=== PATIENT | male | born 1980 | race Caucasian/White ===

== ENCOUNTER 2019-12-29 08:21 | Outpatient (CLI) | payer OTHER, SELFPAY ==
--- NOTE | 2019-12-29 | ECHO_ITS ---
Patient Info Name: Jose Cerna Age: 39 years : 1980 Gender: Male Ht: 74 in Wt: 282 lbs BSA: 2.63 m2 HR: 70 bpm BP: 157 / 94 mmHg Heart Rhythm: Sinus Rhythm Technical Quality: Good Exam Date: 12/29/2019 8:52 AM Exam Location: [facility] Patient Status: Outpatient Admit Date: 12/29/2019 Staff Ordering Physician: Alfa Pang MD Division Director: Gilmer Vogt RDCS Attending Provider: Alfa Pang MD Referring Physician: Poly WALDEN; Exam Type: CA echo doppler color flow Study Info Indications I10 - Essential (primary) hypertension Complete two-dimensional, color flow and Doppler transthoracic echocardiogram is performed. Strain analysis performed. History/Risk Factors HTN and palpitations. Summary 1. Left ventricular chamber dimension is normal. 2. Left ventricular systolic function is normal, estimated at 55-60%. 3. There is mildly increased left ventricular wall thickness. 4. The left ventricular diastolic function is normal. 5. E/e' 6 is not elevated. 6. Global longitudinal strain is abnormal at -15.3%. 7. Left atrial chamber dimension is mildly enlarged. 8. There is mild tricuspid valve regurgitation. 9. No pulmonary hypertension, estimated pulmonary arterial systolic pressure is 32 mmHg. Left Ventricle E/e' 6 is not elevated. Global longitudinal strain is abnormal at -15.3%. Left ventricular chamber dimension is normal. Left ventricular systolic function is normal, estimated at 55-60%. There is mildly increased left ventricular wall thickness. The left ventricular diastolic function is normal. Right Ventricle Right ventricular chamber dimension is normal. Right ventricular systolic function is normal. Left Atria Left atrial chamber dimension is mildly enlarged. Right Atria Right atrial chamber dimension is normal. Aortic Valve The aortic valve is trileaflet. There is no aortic valve stenosis. There is no aortic valve regurgitation. Pulmonic Valve There is no pulmonic regurgitation. Mitral Valve There is no mitral valve stenosis. There is no mitral valve regurgitation. Tricuspid Valve There is mild tricuspid valve regurgitation. No pulmonary hypertension, estimated pulmonary arterial systolic pressure is 32 mmHg. Pericardium/Pleural There is no pericardial effusion. Inferior Vena Cava Normal inferior vena cava with >50% collapse upon inspiration consistent with normal right atrial pressure, 5 mmHg. Aorta The aortic root size at the sinus of Valsalva is normal. Left Ventricular Outflow Tract Name Value Normal LVOT 2D LVOT Diameter 2.1 cm LVOT Doppler LVOT Peak Gradient 4 mmHg LVOT Mean Gradient 2 mmHg LVOT VTI 21 cm LVOT VTI/AV VTI Ratio 0.8 LVOT Stroke Volume 77 ml LVOT CO 5.2 l/min LVOT CI 2.0 l/min/m2 Mitral Valve
--- NOTE | 2020-01-04 11:17 | WPDHOLTEREM ---
Holter/Event Monitor Holter/Event Monitor Date of procedure: 12/29/19 Procedure Type: 48 hour holter monitor Indications: Hypertension Conclusion: 1. 48 hour holter monitor on 12/29/19. 2. Underlying rhythm is sinus rhythm. HR range 46-132 bpm; average HR 81 bpm. 3. There are 34 premature supraventricular complexes, 2 supraventricular couplets and 1 atrial triplet. No supraventricular tachycardia. 4. No premature ventricular complexes. No ventricular tachycardia. 5. No sinoatrial or atrioventricular blocks. No significant pauses greater than seconds. 6. Patient reports symptoms of palpitations and hard beats which demonstrate sinus rhythm, HR range 69-87 bpm.
== END 2019-12-29 08:22 | disposition home or self-care (01) ==
PROVIDERS: PCP Internal Medicine; Visit Provider Internal Medicine
DX: I10 Essential (primary) hypertension (principal)
CPT/HCPCS: 93225; 93226; 93306

== ENCOUNTER 2019-12-30 07:53 | Outpatient (CLI) | payer OTHER, SELFPAY ==
--- NOTE | ~2019-12-30 | XR_ITS ---
XR UGIAC w barium swallow DATE: 12/30/2019 09:23 INDICATION: Dysphagia. Sticking of food sometimes water in chest. TECHNIQUE: Fluoroscopy, spot and overhead images during and after oral ingestion of barium. 1.6 minutes fluoroscopy time DAP: 138 158 images COMPARISON: None FINDINGS: There is a very small sliding hiatal hernia with Schatzki's ring. There is irregularity of the mucosa at the distal esophagus suggesting esophagitis and possible erosions. Endoscopic correlati on and biopsy if necessary should be considered. Otherwise no stricture, mucosal fold thickening, erosion, ulceration or intraluminal mass lesion of t he upper gastrointestinal tract is noted. IMPRESSION: Small sliding hiatal hernia with Schatzki's ring Irregular distal esophageal mucosa suggesting erosions/esophagitis; consider endoscopic visualization and biopsy as clinically appropriate Reviewed, dictated and finalized at [facility]. Reviewed, dictated and finalized at location [facility]. IMPRESSION: Small sliding hiatal hernia with Schatzki's ring Irregular distal esophageal mucosa suggesting erosions/esophagitis; consider en doscopic visualization and biopsy as clinically appropriate
== END 2019-12-30 07:54 | disposition home or self-care (01) ==
PROVIDERS: PCP Internal Medicine; Visit Provider Internal Medicine
DX: K44.9 Diaphragmatic hernia without obstruction or gangrene (principal); K22.2 Esophageal obstruction
CPT/HCPCS: 74246

== ENCOUNTER 2021-12-28 12:51 | Outpatient (CLI) | payer OTHER, SELFPAY ==
--- NOTE | ~2021-12-28 | XR_ITS ---
EXAMINATION: XR abdomen obstructive series DATE: 12/28/2021 13:49 INDICATION: Abdominal distention TECHNIQUE: Upright and supine views of the abdomen were obtained. COMPARISON: None. FINDINGS: There is no free intraperitoneal gas. There are mildly dilated small bowel with air-fluid l evels. Gas and stool are seen in the distal colon. There are phleboliths of the pelvis there is minim al airspace opacity of the left lung base. IMPRESSION: 1. Mildly dilated small bowel with air-fluid levels, consistent with ileus versus partial obstruction . 2. Left basilar airspace opacity, consistent with atelectasis versus pneumonia. Reviewed, dictated and finalized at location B. ND COOK AND BAKER IMPRESSION: 1. Mildly dilated small bowel with air-fluid levels, consistent with ileus vers us partial obstruction. 2. Left basilar airspace opacity, consistent with atelectasis versus pneumonia.
--- NOTE | ~2021-12-28 | US_ITS ---
EXAMINATION: US abdomen limited DATE: 12/28/2021 13:44 INDICATION: Abdominal pain. Abdominal distention. TECHNIQUE: Multiple grayscale and Doppler ultrasound images of the abdomen were obtained. COMPARISON: None FINDINGS: The pancreas is not well visualized. There is diffuse hepatic steatosis. No liver surface n odularity. The gallbladder is normal in size. No gallstones or gallbladder wall thickening. There was no sonographic Blackburn sign. The common duct is normal and measures 4 mm. IMPRESSION: 1. Diffuse hepatic steatosis. Reviewed, dictated and finalized at location A. ENT PRESSER
[2021-12-28 13:13] LABS: Basophils Percent Auto 0.2 % (0.2-1.2); Eosinophils Absolute Auto 0.1 K/mm3 (0-0.3); Eosinophils Percent Auto 0.6 % (0-4.4); Hematocrit 44.4 % (42.0-52.0); Hemoglobin 15.3 g/dL (14.0-18.0); Immature Granulocyte Absolute 0.02 K/mm3 (0.00-0.031); Immature Granulocyte Percent A 0.2 % (0-0.5); Lymphocytes Absolute Auto 1.52 K/mm3 (0.9-3.2); Lymphocytes Percent Auto 18.7 % (18.3-44.2); Mean Corpuscular HGB Conc 34.5 g/dl (32-36); Mean Corpuscular Hemoglobin 30.9 pg (26-34); Mean Corpuscular Volume 89.7 fl (80-100); Mean Platelet Volume 9.2 fl (7.4-10.4); Monocytes Absolute Auto 1.2 K/mm3 (0.1-0.6); Monocytes Percent Auto 14.9 % (2.6-8.5); Neutrophils Absolute Auto 5.3 K/mm3 (1.3-6.7); Neutrophils Percent Auto 65.4 % (45.5-73.1); Platelet Count Result 243 k/mm3 (150-375); Red Blood Count 4.95 M/mm3 (4.6-6.20); Red Cell Distribution Width 12.6 % (11.5-14.5); White Blood Count 8.1 K/mm3 (4.5-10.0)
[2021-12-28 13:21] LABS: Amylase 60 U/L (30-110); Lipase 75 U/L (23-300)
[2021-12-28 13:25] LABS: Alanine Aminotransferase 37 U/L (4-50); Albumin Level 4.4 g/dL (3.5-5.1); Alkaline Phosphatase 107 U/L (38-126); Anion Gap 7 mmol/L (8-16); Aspartate Amino Transferase 31 U/L (17-59); Bilirubin,Total 0.7 mg/dL (0.2-1.3); Blood Urea Nitrogen 18 mg/dL (9-20); Calcium 8.8 mg/dL (8.4-10.2); Carbon Dioxide 27 mmol/L (22-30); Chloride 103 mmol/L (98-107); Estimated Glomerular Filt Rate > 60; Glucose 109 mg/dL (65-110); Potassium 4.3 mmol/L (3.4-5.0); Sodium 137 mmol/L (137-145)
== END 2021-12-28 12:52 | disposition home or self-care (01) ==
PROVIDERS: PCP Internal Medicine; Visit Provider Internal Medicine
DX: R14.0 Abdominal distension (gaseous) (principal); R10.9 Unspecified abdominal pain; K76.0 Fatty (change of) liver, not elsewhere classified
CPT/HCPCS: 36415; 74019; 76705; 80053; 82150; 83690; 85025

== ENCOUNTER 2021-12-28 14:11 | Inpatient (IN) | payer OTHER, SELFPAY ==
--- NOTE | ~2021-12-28 | XR_ITS ---
EXAMINATION: XR abdomen NG/feed tube insert DATE: 12/28/2021 18:18 INDICATION: Nasogastric tube placement with 2 days of abdominal plain TECHNIQUE: A supine view of the abdomen and lower chest was obtained for evaluation of feeding tube placement. COMPARISON: CT abdomen and pelvis dated 12/28/2021 FINDINGS: Is a gastric tube tip in proximal side port in the body of the stomach. There are few gas-filled but not frankly dilated loops of small bowel in the upper abdomen. There is also small amount of gas scat tered throughout the normal caliber transverse colon. Lung bases are clear. Heart size is normal. IMPRESSION: 1. Nasogastric tube in stomach. Reviewed, dictated and finalized at location A. ECTIONAL TREATMENT SPECIALIST
--- NOTE | ~2021-12-28 | CT_ITS ---
EXAMINATION: CT abdomen pelvis w con INDICATION: Epigastric pain TECHNIQUE: Computed tomographic images of the abdomen and pelvis were obtained after the administrati on of 100 cc of Omnipaque 350 intravenous contrast. The dose-length product (DLP) was 1535.30 mGy-cm. Automated exposure control and iterative reconstruction technique were employed. COMPARISON: None available FINDINGS: Minimal dependent atelectasis is present in the lung bases. The heart size is normal. The l iver, spleen, pancreas, gallbladder, and adrenal glands are normal. The kidneys are unremarkable. No pathologically enlarged abdominal or pelvic lymph nodes are identified. There are multiple dilated lo ops of small bowel in the midabdomen. Many of the affected small bowel loops demonstrate wall thicken ing. Some of the more distal loops are not distended but demonstrate wall thickening as well. Althoug h no focal transition point is identified, many of the loops of bowel appear to converge on a port in the midabdomen. The distalmost small bowel is decompressed. There is no free intraperitoneal gas. A trace volume of ascites is present. The appendix is normal. IMPRESSION: 1. Small bowel obstruction. Reviewed, dictated and finalized at location B. GENCY PLANNING AND RESPONSE MANAGER IMPRESSION: 1. Small bowel obstruction.
--- NOTE | ~2021-12-28 | XR_ITS ---
EXAMINATION: XR UGI water soluble w sbs DATE: 12/29/2021 11:24 INDICATION: Small bowel obstruction. TECHNIQUE: Water-soluble contrast was injected into the nasogastric tube. Fluoroscopy of the stomach and small bowel was performed. Fluoroscopy exposure time was 0.0 minutes. Radiographs of the abdomen were obtained. The total number of images was 11. COMPARISON: CT abdomen and pelvis 12/28/2021 FINDINGS: UPPER GASTROINTESTINAL SERIES: The stomach and duodenum show a normal folding pattern. SMALL BOWEL SERIES: There are dilated loops of jejunum. No transition point is identified. The terminal ileum is normal. Transit time to the colon was 45 minutes. IMPRESSION: 1. Dilated loops of jejunum with normal transit time of contrast to the colon, consistent with adynam ic ileus. Reviewed, dictated and finalized at location A. EAD OPERATOR IMPRESSION: 1. Dilated loops of jejunum with normal transit time of contrast to the colon, consistent with adynamic ileus.
[2021-12-28 14:23] VITALS: BP 167/106; PULSE 90; RESP 18; TEMP 36.8; O2SAT 99
[2021-12-28 14:44] LABS: Basophils Percent Auto 0.3 % (0.2-1.2); Eosinophils Percent Auto 0.4 % (0-4.4); Hematocrit 46.5 % (42.0-52.0); Immature Granulocyte Absolute 0.01 K/mm3 (0.00-0.031); Immature Granulocyte Percent A 0.1 % (0-0.5); Lymphocytes Absolute Auto 1.14 K/mm3 (0.9-3.2); Lymphocytes Percent Auto 15.4 % (18.3-44.2); Mean Corpuscular HGB Conc 34.4 g/dl (32-36); Mean Corpuscular Hemoglobin 30.9 pg (26-34); Mean Corpuscular Volume 89.9 fl (80-100); Mean Platelet Volume 9.4 fl (7.4-10.4); Monocytes Percent Auto 13.4 % (2.6-8.5); Neutrophils Absolute Auto 5.2 K/mm3 (1.3-6.7); Neutrophils Percent Auto 70.4 % (45.5-73.1); Platelet Count Result 260 k/mm3 (150-375); Red Blood Count 5.17 M/mm3 (4.6-6.20); Red Cell Distribution Width 12.7 % (11.5-14.5); White Blood Count 7.4 K/mm3 (4.5-10.0)
[2021-12-28 15:02] LABS: Alanine Aminotransferase 39 U/L (4-50); Albumin Level 4.7 g/dL (3.5-5.1); Alkaline Phosphatase 118 U/L (38-126); Anion Gap 10 mmol/L (8-16); Aspartate Amino Transferase 27 U/L (17-59); Bilirubin,Total 0.8 mg/dL (0.2-1.3); Blood Urea Nitrogen 19 mg/dL (9-20); Calcium 8.8 mg/dL (8.4-10.2); Carbon Dioxide 27 mmol/L (22-30); Chloride 101 mmol/L (98-107); Estimated CRCL calculation 112 ml/min; Estimated Glomerular Filt Rate > 60; Glucose 110 mg/dL (65-110); Lipase 79 U/L (23-300); Sodium 138 mmol/L (137-145)
[2021-12-28 15:20] LABS: Add Urine Microscopic? YES; Appearance Urine Clear (Clear); Bilirubin Urine Negative (Negative); Blood Urine Negative (Negative); Color Urine Amber (Yellow); Glucose Urine UA Negative (Negative); Ketones Urine Negative (Negative); Leukocyte Esterase Ur Negative LEU/UL (Negative); Mucus Urine Few /lpf; Nitrate Urine Negative (Negative); Protein Urine Negative (Negative); RBC Urine 0-2 /hpf (0-2); Specific Grav Ur 1.028 (1.001-1.035); WBC Urine 0-3 /hpf
[2021-12-28 15:46] VITALS: BP 148/104
--- NOTE | 2021-12-28 16:21 | ED.ABDPAIN ---
HPI - Abdominal Pain General Chief Complaint: Abdominal Pain Stated Complaint: abdominal pain Time Seen by Provider: 12/28/21 16:06 Source: patient History of Present Illness HPI narrative: Patient presents with abdominal pain. Reports that abdominal pain since Friday noted after having some lunch when he ate a salad and started to feel nauseous. Endocell throw up if not noting change in symptoms abdominal pain got progressively worse he saw his primary care doctor who ordered right ultrasound and obstruction series. The obstruction series was concerning for partial obstruction was referred to the ER for evaluation. Patient reports his pain is epigastric area constant achy, no clear aggravating or alleviating factors, no radiation. It is associated with nausea he also reports some soft stools denies any urinary symptoms Related Data Home Medications Medication Instructions Recorded Confirmed cyanocobalamin (vitamin B-12) 1,000 mcg PO DAILY 12/03/19 12/28/21 1,000 mcg tablet omega-3 fatty acids 1,000 mg 2,000 mg PO BID cap 12/03/19 12/28/21 capsule Allergies Allergy/AdvReac Type Severity Reaction Status Date / Time No Known Allergies Allergy Verified 12/28/21 12:20 Review of Systems Review of Systems: CONSTITUTIONAL: Denies fever, chills, or sweats. EYES: Denies visual changes, redness, or discharge. ENT: Denies rhinorrhea, congestion, sore throat, or otalgia. CARDIOVASCULAR: Denies chest pain, palpitations, or edema. RESPIRATORY: Denies cough or dyspnea. GASTROINTESTINAL: Abdominal pain with nausea GENITOURINARY: Denies dysuria or hematuria. SKIN: Denies rash or itching. MUSCULOSKELETAL: Denies back pain, joint pain, or myalgia. NEUROLOGIC: Denies headache, numbness, dizziness, or weakness. PSYCHIATRIC: Denies anxiety or depression. All systems reviewed & are unremarkable except as noted in HPI and below PMFSH Past Medical History Medical History Abdominal bloating Benign essential hypertension BMI 38.0-38.9,adult BMI 39.0-39.9,adult Elevated homocysteine Encounter for preventive health examination Encounter for routine adult health examination without abnormal findings GERD (gastroesophageal reflux disease) Heart palpitations Hiatal hernia Hyperlipidemia On senior care drug therapy Onychomycosis Schatzki's ring Family History Family History Father Hypertension Social History Social History Smoking status: Never smoker Alcohol intake: current Exam Narrative: GENERAL: Well-appearing, well-nourished, and in no acute distress. HEAD: Normocephalic, atraumatic. EYES: PERRLA and EOMI. ENT: Nares clear, no rhinorrhea or epistaxis. Mucous membranes moist. NECK: Supple. No masses. No JVD CHEST: Clear to auscultation. No respiratory distress. No wheezes rales or rhonchi HEART: Regular rate and rhythm. No murmur heard. Normal peripheral pulses. ABDOMEN: Tenderness palpation in the epigastric area no rebound or guarding soft, nondistended EXTREMITIES: Normal range of motion. No edema. SKIN: Warm, dry, no rash. NEURO: No focal deficits. Alert and oriented x3. PSYCH: Normal mood and affect. Course Reevaluation(s) Reevaluation #1: Patient resting comfortably no skin changes in symptoms results thus far reviewed with patient. Consult placed to Dr. Gaspar Date: 12/28/21 Time: 17:28 Consultations Consultation #1: Case discussed with Dr. Gaspar who will admit for further management. Patient is comfortable inpatient plan. Date: 12/28/21 Time: 17:38 Vital Signs Vital signs: Vital Signs Temperature 36.8 C 12/28/21 14:23 Pulse Rate 90 12/28/21 14:23 Respiratory Rate 18 12/28/21 14:23 Blood Pressure 167/106 H 12/28/21 14:23 Pulse Oximetry 99 12/28/21 14:23 Temperature 36.8 C 12/28/21 14:23 Pulse Rate 91
[2021-12-28] MEDS: MAG HYDROX/AL HYDROX/SIMETH 30 ML UDC PO (16:46)
[2021-12-28] MEDS: LIDOCAINE HCL 2% VISC SOLN 15 ML UDC 20 ML PO (16:46)
[2021-12-28] MEDS: SODIUM CHLORIDE 0.9% IV 1,000 ML 999 ML IV CONT (16:47)
[2021-12-28] MEDS: LORazepam INJ (*CRX) 2 MG/ML VIAL 0.5 MG IV PUSH (18:18)
[2021-12-28 18:28] VITALS: BP 144/101; PULSE 93; RESP 18; O2SAT 97
[2021-12-28 19:32] VITALS: BP 131/93; PULSE 91; RESP 20; O2SAT 97
--- NOTE | 2021-12-28 20:06 | ADMGEN ---
This patient, Jose Cerna, was admitted to Medical Room 346-01. Patient/family oriented to hospital policies and general routines including ID bracelet, bed and alarms, visiting hours, pain management, procedures, bathroom and other care routines, personal items, smoking policy, room service/diet, and visiting hours. Information on how to activate the Rapid Response Team has been discussed. Patient/Family are encouraged to report perceived risks to care and to ask questions if they do not understand what they are told or what they should do.
[2021-12-28 20:07] VITALS: BMI 37.3
[2021-12-28] MEDS: SODIUM CHLORIDE 0.9% IV 1,000 ML 125 ML IV CONT (21:16)
[2021-12-28 22:25] VITALS: BP 169/93; PULSE 80; RESP 18; TEMP 36.5; O2SAT 98
--- NOTE | 2021-12-29 01:47 | PC.NURSE ---
When this RN went to do rounds at 0100, this RN noticed that pt's NG canister contained blood tinged output. Physician is informed of finding and states that it will be dealt with in the morning.
[2021-12-29] MEDS: SODIUM CHLORIDE 0.9% IV 1,000 ML 125 ML IV CONT (04:45)
[2021-12-29 06:36] VITALS: BP 149/90; PULSE 62; RESP 18; TEMP 36.7; O2SAT 96
[2021-12-29 07:54] VITALS: O2SAT 93
[2021-12-29] MEDS: PANTOPRAZOLE SODIUM IV 40 MG VIAL IV PUSH (09:16)
--- NOTE | 2021-12-29 09:55 | PM.IMHP ---
H&P: HPI History of Present Illness Date/Time: 12/29/21 09:55 Chief Complaint: abdominal pain, nausea Narrative: patient is a 41-year-old man who works evenings. He was at work about 5:00 p.m. 3 days ago and was having salad for supper. He had about 4 bites and started noticing some epigastric abdominal pain and was full. He thought he had possibly some food poisoning and went home and induced himself to vomit. His symptoms were a little better but not gone. They persisted through the night and on . Yesterday he continued to have symptoms and saw his primary care physician. An ultrasound of the right upper quadrant and plain films of the abdomen were ordered. The ultrasound was negative but the plain films suggested a partial small bowel obstruction. He came to the emergency room and was noted to have epigastric pain with tenderness in the epigastric area. He had a normal white blood cell count and electrolytes were normal. His CT scan however did show evidence of a partial small bowel obstruction. I reviewed his CT scan independently and agree it does appear he has a small bowel obstruction. There also seems to be a large amount of rather solid matter in his stomach. On questioning the patient further, he reports that he had a large bag of popcorn the day before his symptoms started. He also had more popcorn in the morning of the day of his symptoms started. He has not had any problems eating popcorn peanuts or other high residue foods in the past. He has never had any abdominal surgery. He is admitted now for small bowel obstruction. Since being admitted he has had a nasogastric tube placed. He has had been several mount of gastric content evacuated. This morning he reports that he has no abdominal pain. He has not had flatus or bowel movement. His main complaint is the nasogastric tube and being somewhat confined to bed. Review of Systems Review of Systems: All systems reviewed & are unremarkable except as noted in HPI and below Constitutional: Constitutional: Denies chills and Denies fever(s) Cardiovascular: Cardiovascular: Denies chest pain, Denies diaphoresis, Denies dyspnea and Denies paroxysmal nocturnal dyspnea Respiratory: Respiratory: Denies chest congestion, Denies cough and Denies dyspnea Gastrointestinal: Gastrointestinal: Reports as per HPI, Reports abdominal pain, Denies heartburn and Denies vomiting Integumentary/Breasts: Skin/Breast: Denies lesions and Denies rash PMFSH Past Medical History Medical History Abdominal bloating Benign essential hypertension BMI 38.0-38.9,adult BMI 39.0-39.9,adult Elevated homocysteine Encounter for preventive health examination Encounter for routine adult health examination without abnormal findings GERD (gastroesophageal reflux disease) Heart palpitations Hiatal hernia Hyperlipidemia On residential drug therapy Onychomycosis Schatzki's ring Family History Family History Father Hypertension Social History Social History Smoking status: Never smoker Second hand tobacco smoke exposure: No Alcohol intake: former Substance use: never Spiritual care concerns: No Meds Home Medications and Allergies Home Medications Medication Instructions Recorded Confirmed Type cyanocobalamin (vitamin B-12) 1,000 mcg PO DAILY 12/03/19 12/28/21 History 1,000 mcg tablet folic acid 1 mg tablet 1 mg PO DAILY #90 tablet 12/03/19 12/28/21 Rx omega-3 fatty acids 1,000 mg 2,000 mg PO BID cap 12/03/19 12/28/21 History capsule omeprazole 40 mg capsule,delayed 40 mg PO DAILY PRN #30 cap 06/06/21 12/28/21 Rx release fenofibrate nanocrystallized 145 145 mg PO DAILY #90 tablet 06/08/21 12/28/21 Rx mg tablet dicyclomine 10 mg capsule 10 mg PO TID PRN #30 cap 12/28/21 12/28/21 Rx Allergies
[2021-12-29] MEDS: ENOXAPARIN 40 MG/0.4 ML SYRINGE SUB-Q (11:48)
[2021-12-29 14:00] VITALS: BP 123/63; PULSE 66; RESP 20; TEMP 36.1; O2SAT 96
[2021-12-29 19:39] VITALS: BP 129/79; PULSE 64; RESP 17; TEMP 37.1; O2SAT 98
[2021-12-29] MEDS: PANTOPRAZOLE 40 MG TABLET PO (20:28)
--- NOTE | 2021-12-30 03:24 | PC.NURSE ---
Daylight Savings Time For Daylight Savings Time Ending in the Fall - Clocks are moved back. For Daylight Savings Time Beginning in the Spring - Clocks are moved ahead. For [facility], the time of change occurs at 0200 hrs. Time is taken from the hotel server. This entry on the patient's chart recognizes the change in time reflected during documentation. Example: 2 entries for vital signs may be charted for 0200 hrs.
[2021-12-30 04:03] VITALS: BP 128/60; PULSE 62; RESP 17; TEMP 36.6; O2SAT 98
[2021-12-30 05:57] LABS: Hematocrit 37.5 % (42.0-52.0); Mean Corpuscular HGB Conc 34.7 g/dl (32-36); Mean Corpuscular Hemoglobin 30.9 pg (26-34); Mean Corpuscular Volume 89.1 fl (80-100); Mean Platelet Volume 9.7 fl (7.4-10.4); Platelet Count Result 224 k/mm3 (150-375); Red Blood Count 4.21 M/mm3 (4.6-6.20); Red Cell Distribution Width 12.4 % (11.5-14.5); White Blood Count 5.7 K/mm3 (4.5-10.0)
[2021-12-30 06:14] LABS: Anion Gap 7 mmol/L (8-16); Blood Urea Nitrogen 16 mg/dL (9-20); Calcium 8.4 mg/dL (8.4-10.2); Carbon Dioxide 25 mmol/L (22-30); Chloride 105 mmol/L (98-107); Estimated CRCL calculation 123 ml/min; Estimated Glomerular Filt Rate > 60; Glucose 97 mg/dL (65-110); Potassium 3.9 mmol/L (3.4-5.0); Sodium 137 mmol/L (137-145)
[2021-12-30] MEDS: PANTOPRAZOLE 40 MG TABLET PO (08:13)
[2021-12-30] MEDS: ENOXAPARIN 40 MG/0.4 ML SYRINGE SUB-Q (08:13)
--- NOTE | 2021-12-30 10:34 | PM.DS ---
DS: Admitting Diagnosis Discharge Date December 30, 2021 Admitting Diagnosis partial small-bowel obstruction gastroesophageal reflux disease DS: Discharge Diagnosis Discharge Diagnosis (1) Small bowel obstruction: Code(s): K56.609 - Unspecified intestinal obstruction, unspecified as to partial versus complete obstruction Status: Acute Assessment and Plan: probably due to intraluminal partial obstruction. Patient has history of eating a lot of popcorn the day prior to and the day of onset is abdominal pain. CT scan showed quite a bit of in digest double somewhat solid matter in his stomach on admission. Relieved after water-soluble contrast upper GI small-bowel follow-through 12/29/2021. (2) GERD (gastroesophageal reflux disease): Qualifiers: Esophagitis presence: without esophagitis Qualified Code(s): K21.9 - Gastro-esophageal reflux disease without esophagitis Code(s): K21.9 - Gastro-esophageal reflux disease without esophagitis Status: Chronic Assessment and Plan: Continue on home meds (3) BMI 38.0-38.9,adult: Code(s): Z68.38 - Body mass index [BMI] 38.0-38.9, adult Status: Chronic DS: Summary Hospital Course Hospital Course: Patient is a 41-year-old man who works evenings. He was at work about 5:00 p.m. 4 days ago and was having salad for supper. He had about 4 bites and started noticing some epigastric abdominal pain and was full. He thought he had possibly some food poisoning and went home and induced himself to vomit. His symptoms were a little better but not gone. They persisted through the night and on . Friday, 2 days ago, he continued to have symptoms and saw his primary care physician. An ultrasound of the right upper quadrant and plain films of the abdomen were ordered. The ultrasound was negative but the plain films suggested a partial small bowel obstruction. He came to the emergency room and was noted to have epigastric pain with tenderness in the epigastric area. He had a normal white blood cell count and electrolytes were normal. His CT scan however did show evidence of a partial small bowel obstruction. I reviewed his CT scan independently and agree it does appear he has a small bowel obstruction. There also seems to be a large amount of rather solid matter in his stomach. On questioning the patient further, he reports that he had a large bag of popcorn the day before his symptoms started. He also had more popcorn in the morning of the day his symptoms started. He has not had any problems eating popcorn peanuts or other high residue foods in the past. He has never had any abdominal surgery. Nasogastric tube had been placed in the emergency room and by the time I saw him in the morning on 12/29/2021, his abdominal pain was gone. His abdominal exam was unremarkable. His main complaint was the nasogastric tube. He underwent a Gastrografin upper GI small-bowel follow-through on 12/29/2021. The contrast went through the small intestine promptly. Patient had several bowel movements, in fact some diarrhea, after the study. He was started on full liquids and tolerated these well. On the day of discharge, 12/30/2021, his main concern was the loose stools. He is discharged now in good condition. He will be seeing his primary care physician for a scheduled appointment tomorrow, 12/31/2021. Time spent discussing smoking cessation with patient: 3 to 10 minutes Status at Discharge Functional status at discharge: independent ambulation Overall status at discharge: patient is progressing back to baseline Time Spent with Patient Time attestation: Total time spent providing and/or coordinating discharge services: Time spent: Less than 30 minutes Exam Const: General: comfortable and no acute distress; No confusion Orientation/consciousness: patient oriented x3 and No confusion GI: Inspection: normal to inspection, non-distended and obesity
== END 2021-12-30 13:13 | disposition home or self-care (01) | DRG 390 ==
LOC: ANHED 17:40 → ANH3MED 18:37
PROVIDERS: Admitting Provider Surgery; Emergency Provider Emergency Medicine; PCP Internal Medicine; Visit Provider Surgery
DX: K56.600 Partial intestinal obstruction, unspecified as to cause (principal); K21.9 Gastro-esophageal reflux disease without esophagitis; E78.5 Hyperlipidemia, unspecified; K44.9 Diaphragmatic hernia without obstruction or gangrene; Z68.37 Body mass index [BMI] 37.0-37.9, adult
CPT/HCPCS: 36415; 74019; 74177; 74240; 74248; 76705; 80048; 80053; 81001; 82150; 83690; 85025; 85027; 96361; 96374; 99285; A9270; C9113; G0378; J1650; J2060; J7030; Q9967

== ENCOUNTER → 2023-03-03 10:31 | Outpatient (CLI) | payer SELFPAY ==
--- NOTE | ~2023-03-03 | XR_ITS ---
XR toe 1st LT min 2V 03/03/2023 10:53 INDICATION: Left first toe pain PROCEDURE: 4 views left first toe COMPARISON: No prior studies for comparison. FINDINGS: Fracture, dislocation or subluxation is not identified. The soft tissues appear within norm al limits. No foreign bodies are identified. IMPRESSION: 1: NO ACUTE BONE OR JOINT ABNORMALITY IDENTIFIED. Reviewed, dictated and finalized at location B.
== END ==
PROVIDERS: PCP Internal Medicine; Visit Provider Internal Medicine
DX: M79.675 Pain in left toe(s) (principal)
CPT/HCPCS: 73660